=== PATIENT | female | born 1945 | race Caucasian/White ===

== ENCOUNTER 2020-05-24 12:40 | Inpatient (IN) | payer MEDICARE ==
[~2020-05-24] VITALS: Ht 157.5 cm; Wt 59.1 kg
[2020-05-24] MEDS ORDERED: morphine 4 MG/ML inj SYRINge IV ONE (13:35)
[2020-05-24] MEDS ORDERED: normal saline 1000ml 1,000 ML IV ONE (13:35)
[2020-05-24 13:54] LABS: BASOPHILS # (AUTO) 0.1 X10'3 (0-0.2); BASOPHILS % (AUTO) 0.4 % (0-1); EOSINOPHILS # (AUTO) 0.1 X10'3 (0-0.9); EOSINOPHILS % (AUTO) 0.5 % (0-6); HEMOGLOBIN 14.1 g/dl (12.0-16.0); LYMPHOCYTES # (AUTO) 1.7 X10'3 (1.1-4.8); LYMPHOCYTES % (AUTO) 12.9 % (21-51); MEAN CORPUSCULAR HEMOGLOBIN 32.5 PG (27.0-31.0); MEAN CORPUSCULAR HGB CONC 33.5 g/dL (33.0-36.5); MEAN CORPUSCULAR VOLUME 97.1 FL (78-98); MEAN PLATELET VOLUME 7.3 FL (7.4-10.4); MONOCYTES # (AUTO) 0.8 X10'3 (0-0.9); MONOCYTES % (AUTO) 6.2 % (2-12); NEUTROPHILS # (AUTO) 10.4 X10'3 (1.8-7.7); PLATELET COUNT 352 X10'3 (140-440); RED BLOOD COUNT 4.33 X10'6 (4.20-5.60); RED CELL DISTRIBUTION WIDTH 12.8 % (11.5-14.5)
[2020-05-24 14:06] LABS: PARTIAL THROMBOPLASTIN TIME 25 SECONDS (22-32)
[2020-05-24 14:08] LABS: ALANINE AMINOTRANSFERASE 34 U/L (12-78); ALBUMIN 3.7 G/DL (3.4-5.0); ALKALINE PHOSPHATASE 83 IU/L (46-116); ANION GAP 5 (8-16); ASPARTATE AMINO TRANSFERASE 16 U/L (10-37); BILIRUBIN,TOTAL 0.2 MG/DL (0.1-1.0); BLOOD UREA NITROGEN 14 MG/DL (7-18); BUN/CREATININE RATIO 17.7 (6.6-38.0); CALCIUM 9.3 MG/DL (8.5-10.1); CHLORIDE 102 MMOL/L (99-107); CREATININE 0.79 MG/DL (0.40-0.90); GLUCOSE 173 MG/DL (70-104); POTASSIUM 3.8 MMOL/L (3.5-5.1); SODIUM 138 MMOL/L (135-145); TOTAL PROTEIN 7.5 G/DL (6.4-8.2); eGFR 71 ML/MIN
[2020-05-24 14:15] LABS: MAGNESIUM 2.3 MG/DL (1.5-2.4)
[2020-05-24] MEDS ORDERED: ringers solution, lacted 1,000 ML IV ONE (14:20)
[2020-05-24] MEDS ORDERED: ondansetron/PF 4mg/2ml inj IV PRN (14:35)
[2020-05-24] MEDS ORDERED: mag hydrox/Alum hydrox/simeth 30ml oral suspension PO PRN (14:35)
[2020-05-24] MEDS ORDERED: acetaminophen 325mg tablet PO PRN ×2 (14:35)
[2020-05-24] MEDS ORDERED: PRAV40TA3 PO (14:50)
[2020-05-24] MEDS ORDERED: ESTR1TAB19 PO (14:50)
[2020-05-24] MEDS ORDERED: AMLO5TAB PO (14:50)
[2020-05-24] MEDS ORDERED: FLUT16SP20 BOTHNARES (14:50)
[2020-05-24] MEDS ORDERED: LOSA50TA64 PO (14:50)
--- NOTE | 2020-05-24 16:00 | NUR ---
I have received report from Dionisio PIERSON in ED and had the opportunity to ask questions and assume patient care.
[2020-05-24 16:10] VITALS: BP 158/74
--- NOTE | 2020-05-24 16:10 | NUR ---
Patient transferred to room 4023A in stable condition.
[2020-05-24] MEDS: traMADol 50MG tablet PO PRN (16:31)
[2020-05-24 18:00] VITALS: BP 151/73
--- NOTE | 2020-05-24 18:00 | NUR ---
Problems reprioritized. Patient report given, questions answered & plan of care reviewed with Michelle PIERSON.
--- NOTE | 2020-05-24 18:18 | NUR ---
Patient in room ORTHO 4023. I have received report from Madelaine PIERSON and had the opportunity to ask questions and assume patient care.
--- NOTE | 2020-05-24 21:46 | NUR ---
PAGER ID: [phone] MESSAGE: Michelle stanley [phone]. Marta Henry in 4023A is wanting her BP meds. Her med rec was never done on day shift. I just went and completed it. She takes amlodipine 5mg daily. She has not got any of her regular meds since being here. BP 162/83
[2020-05-24 22:00] VITALS: BP 154/89
[2020-05-24] MEDS: amLODIPine 5mg tablet PO SCH (22:01)
[2020-05-25] VITALS (19 sets, daily range): BP systolic 120–154; BP diastolic 57–98
[2020-05-25] MEDS: morphine 2 MG/ML inj. syringe IV PRN (02:53)
[2020-05-25] MEDS ORDERED: famotidine/PF 10 mg/ml inj IV ONE (06:00)
[2020-05-25 06:09] LABS: BASOPHILS % (AUTO) 0.2 % (0-1); EOSINOPHILS % (AUTO) 0.3 % (0-6); HEMOGLOBIN 13.2 g/dl (12.0-16.0); LYMPHOCYTES # (AUTO) 2.5 X10'3 (1.1-4.8); LYMPHOCYTES % (AUTO) 20.2 % (21-51); MEAN CORPUSCULAR HEMOGLOBIN 32.8 PG (27.0-31.0); MEAN CORPUSCULAR HGB CONC 33.9 g/dL (33.0-36.5); MEAN CORPUSCULAR VOLUME 96.9 FL (78-98); MEAN PLATELET VOLUME 7.4 FL (7.4-10.4); MONOCYTES # (AUTO) 1.1 X10'3 (0-0.9); MONOCYTES % (AUTO) 8.6 % (2-12); NEUTROPHILS # (AUTO) 8.7 X10'3 (1.8-7.7); NEUTROPHILS % (AUTO) 70.7 % (42-75); PLATELET COUNT 346 X10'3 (140-440); RED BLOOD COUNT 4.02 X10'6 (4.20-5.60); RED CELL DISTRIBUTION WIDTH 12.9 % (11.5-14.5); WHITE BLOOD COUNT 12.4 X10'3 (4.5-11.0)
[2020-05-25 06:19] LABS: ALBUMIN 3.3 G/DL (3.4-5.0); ANION GAP 7 (8-16); BLOOD UREA NITROGEN 9 MG/DL (7-18); BUN/CREATININE RATIO 13.6 (6.6-38.0); CALCIUM 8.4 MG/DL (8.5-10.1); CHLORIDE 105 MMOL/L (99-107); CREATININE 0.66 MG/DL (0.40-0.90); GLUCOSE 112 MG/DL (70-104); POTASSIUM 3.7 MMOL/L (3.5-5.1); SODIUM 139 MMOL/L (135-145); TOTAL CARBON DIOXIDE 27.1 MMOL/L (24-32); eGFR 87 ML/MIN
--- NOTE | 2020-05-25 06:38 | NUR ---
Problems reprioritized. Patient report given, questions answered & plan of care reviewed with La Nena PIERSON.
[2020-05-25] MEDS: amLODIPine 5mg tablet PO SCH (07:12)
[2020-05-25] MEDS ORDERED: morphine 4 MG/ML inj SYRINge IV PRN (08:50)
[2020-05-25] MEDS ORDERED: labetalol 20mg/4ml (5mg/ml) syringe IV PRN (08:50)
[2020-05-25] MEDS ORDERED: ondansetron/PF 4mg/2ml inj IV PRN (08:50)
[2020-05-25] MEDS ORDERED: morphine 2 MG/ML inj. syringe IV PRN (08:50)
[2020-05-25] MEDS ORDERED: hydrALAZINE 20mg/ml inj. IV PRN (08:50)
[2020-05-25] MEDS ORDERED: ringers solution, lacted 1,000 ML IV SCH (08:50)
[2020-05-25] MEDS ORDERED: fentaNYL/PF 50MCG/1 ML 2ML syringe IV PRN ×2 (08:50)
[2020-05-25] MEDS ORDERED: sevoflurane 250ml liquid IH ONE (10:21)
[2020-05-25] MEDS ORDERED: fentaNYL/PF 50MCG/1 ML 2ML syringe ONE (10:22)
[2020-05-25] MEDS ORDERED: MIDAZolam 5mg/5ml vial ONE (10:22)
[2020-05-25] MEDS ORDERED: ROPIVAcaine 0.5% (5mg/ml) 30ml vial ONE ×2 (10:22)
[2020-05-25] MEDS ORDERED: dexamethasone sod phosphate 4mg/ml inj. ONE (10:23)
[2020-05-25] MEDS ORDERED: ondansetron/PF 4mg/2ml inj ONE (10:23)
[2020-05-25] MEDS ORDERED: ceFAZolin 1000mg inj ONE ×3 (10:31→10:47)
[2020-05-25] MEDS ORDERED: LIDOcaine 2% (20mg/ml) 5ml vial ONE (10:50)
[2020-05-25] MEDS ORDERED: propofol inj 20 ML IV ONE (10:50)
--- NOTE | 2020-05-25 12:45 | NUR ---
Received from OR via BED , accompanied by Anesthesiologist DR LEMA and report given by Anesthesiolgist. PATIENT WAKING UP, NO S/S OF PAIN, V/S WNL, NEUROVASCULAR CHECKS INTACT, 20G PIV RUE , LEFT FOOT/ANKLE SPLINT CAST DRESSING CDI.
--- NOTE | 2020-05-25 13:35 | NUR ---
PATIENT SLEEPY BUT ORIENTED X4, DENIES PAIN, V/S WNL, NEUROVASCULAR CHECKS INTACT, 20G PIV RUE , LEFT FOOT/ANKLE SPLINT CAST DRESSING CDI. PATIENT TAKEN TO 4023A WITH ALL BELONGINGS AND HOOKED UP TO MONITORS IN ROOM AND REPORT GIVEN TO ORDAINED MINISTER WHO HAS TAKEN OVER PATIENT CARE.
--- NOTE | 2020-05-25 18:25 | NUR ---
Problems reprioritized. Patient report given, questions answered & plan of care reviewed with Shannon PIERSON.
--- NOTE | 2020-05-25 18:25 | NUR ---
Patient in room ORTHO 4023. I have received report from La Nena PIERSON and had the opportunity to ask questions and assume patient care.
[2020-05-26 02:00] VITALS: BP 125/66
[2020-05-26] MEDS: traMADol 50MG tablet PO PRN ×2 (02:11→19:01)
[2020-05-26] MEDS: morphine 2 MG/ML inj. syringe IV PRN ×3 (05:23→14:58)
--- NOTE | 2020-05-26 06:25 | NUR ---
Patient in room ORTHO 4023. I have received report from DANGELO Ortega and had the opportunity to ask questions and assume patient care.
[2020-05-26 06:33] LABS: BASOPHILS % (AUTO) 0.1 % (0-1); EOSINOPHILS % (AUTO) 0 % (0-6); HEMATOCRIT 35.7 % (35.0-45.0); HEMOGLOBIN 12.2 g/dl (12.0-16.0); LYMPHOCYTES # (AUTO) 2.6 X10'3 (1.1-4.8); LYMPHOCYTES % (AUTO) 16.3 % (21-51); MEAN CORPUSCULAR HEMOGLOBIN 33.5 PG (27.0-31.0); MEAN CORPUSCULAR HGB CONC 34.3 g/dL (33.0-36.5); MEAN CORPUSCULAR VOLUME 97.8 FL (78-98); MEAN PLATELET VOLUME 7.6 FL (7.4-10.4); MONOCYTES # (AUTO) 1.9 X10'3 (0-0.9); MONOCYTES % (AUTO) 11.6 % (2-12); NEUTROPHILS # (AUTO) 11.5 X10'3 (1.8-7.7); PLATELET COUNT 338 X10'3 (140-440); RED BLOOD COUNT 3.65 X10'6 (4.20-5.60); RED CELL DISTRIBUTION WIDTH 12.7 % (11.5-14.5)
[2020-05-26 06:44] LABS: ALBUMIN 3.1 G/DL (3.4-5.0); ANION GAP 10 (8-16); BLOOD UREA NITROGEN 11 MG/DL (7-18); BUN/CREATININE RATIO 15.1 (6.6-38.0); CALCIUM 8.3 MG/DL (8.5-10.1); CHLORIDE 106 MMOL/L (99-107); CREATININE 0.73 MG/DL (0.40-0.90); GLUCOSE 102 MG/DL (70-104); POTASSIUM 3.4 MMOL/L (3.5-5.1); SODIUM 141 MMOL/L (135-145); TOTAL CARBON DIOXIDE 25.4 MMOL/L (24-32); eGFR 77 ML/MIN
--- NOTE | 2020-05-26 06:46 | NUR ---
Problems reprioritized. Patient report given, questions answered & plan of care reviewed with Ernestina Rn.
[2020-05-26] MEDS ORDERED: non-formulary drug (Amlodipine Besylate 1 TABLET) PO SCH (08:00)
[2020-05-26] MEDS ORDERED: potassium CL 10mEq/100ml bag 100 ML IV PRN (09:30)
[2020-05-26] MEDS ORDERED: magnesium 4gm in 100ml NS 100 ML IV PRN (09:30)
[2020-05-26] MEDS ORDERED: magnesium Cl slow-release 64mg tablet PO PRN (09:30)
[2020-05-26] MEDS ORDERED: magnesium 2GM in 50ml NS 50 ML IV PRN (09:30)
[2020-05-26] MEDS ORDERED: potassium Cl 20 mEq SR tablet PO PRN (09:30)
[2020-05-26 09:42] LABS: MAGNESIUM 2.1 MG/DL (1.5-2.4)
[2020-05-26] MEDS: losartan 50mg tablet PO SCH (10:35)
[2020-05-26] MEDS: pravastatin 40mg tablet PO SCH (10:35)
[2020-05-26] MEDS: fluticasone nasal spray 16GM bottle NS SCH (10:35)
[2020-05-26] MEDS: estradiol 1mg tablet PO SCH (10:35)
[2020-05-26] MEDS: amLODIPine 5mg tablet PO SCH (10:36)
[2020-05-26] MEDS: potassium Cl 20 mEq SR tablet PO PRN ×3 (10:43→18:11)
[2020-05-26] MEDS: magnesium hydroxide 30ml (MOM) UD suspension PO PRN (10:44)
[2020-05-26 11:00] VITALS: BP 124/59
[2020-05-26 18:00] VITALS: BP 125/59
--- NOTE | 2020-05-26 18:00 | NUR ---
Patient in room ORTHO 4023. I have received report from Ernestina PIERSON and had the opportunity to ask questions and assume patient care.
--- NOTE | 2020-05-26 18:40 | NUR ---
Problems reprioritized. Patient report given, questions answered & plan of care reviewed with DANGELO Bateman.
[2020-05-26] MEDS: K and/or MAG REPLACEMENT MC SCH (20:00)
[2020-05-26] MEDS: docusate sod 100mg capsule PO SCH (21:01)
[2020-05-26 22:00] VITALS: BP 136/73
[2020-05-27] MEDS: traMADol 50MG tablet PO PRN ×2 (00:58→05:44)
[2020-05-27 05:12] LABS: CLARITY,URINE CLEAR (Clear); COLOR,URINE YELLOW (Yellow); GLUCOSE, URINE NEGATIVE (Neg); KETONES,URINE NEGATIVE (Neg); LEUKOCYTE ESTERASE ,URINE NEGATIVE (Neg); NITRITES, URINE NEGATIVE (Neg); OCCULT BLOOD,URINE NEGATIVE (Neg); PROTEIN,URINE NEGATIVE (Neg); UROBILINOGEN,URINE 0.2 E.U/dL (0.2-1.0)
[2020-05-27 05:19] LABS: UA COLLECTION TYPE VOIDED
[2020-05-27 05:24] LABS: BASOPHILS # (AUTO) 0.1 X10'3 (0-0.2); BASOPHILS % (AUTO) 0.5 % (0-1); EOSINOPHILS # (AUTO) 0.1 X10'3 (0-0.9); EOSINOPHILS % (AUTO) 0.7 % (0-6); HEMATOCRIT 36.5 % (35.0-45.0); HEMOGLOBIN 12.4 g/dl (12.0-16.0); LYMPHOCYTES # (AUTO) 2.9 X10'3 (1.1-4.8); LYMPHOCYTES % (AUTO) 22.9 % (21-51); MEAN CORPUSCULAR HEMOGLOBIN 33.1 PG (27.0-31.0); MEAN CORPUSCULAR HGB CONC 33.9 g/dL (33.0-36.5); MEAN CORPUSCULAR VOLUME 97.7 FL (78-98); MEAN PLATELET VOLUME 7.2 FL (7.4-10.4); MONOCYTES # (AUTO) 1.5 X10'3 (0-0.9); MONOCYTES % (AUTO) 12.2 % (2-12); NEUTROPHILS % (AUTO) 63.7 % (42-75); PLATELET COUNT 322 X10'3 (140-440); RED BLOOD COUNT 3.73 X10'6 (4.20-5.60); RED CELL DISTRIBUTION WIDTH 12.7 % (11.5-14.5); WHITE BLOOD COUNT 12.7 X10'3 (4.5-11.0)
[2020-05-27 05:36] LABS: ANION GAP 5 (8-16); BLOOD UREA NITROGEN 12 MG/DL (7-18); BUN/CREATININE RATIO 18.2 (6.6-38.0); CALCIUM 8.6 MG/DL (8.5-10.1); CHLORIDE 103 MMOL/L (99-107); CREATININE 0.66 MG/DL (0.40-0.90); GLUCOSE 112 MG/DL (70-104); MAGNESIUM 2.4 MG/DL (1.5-2.4); POTASSIUM 4.1 MMOL/L (3.5-5.1); SODIUM 138 MMOL/L (135-145); TOTAL CARBON DIOXIDE 29.8 MMOL/L (24-32); eGFR 87 ML/MIN
--- NOTE | 2020-05-27 06:19 | NUR ---
Patient in room ORTHO 4023. I have received report from Bhavana PIERSON and had the opportunity to ask questions and assume patient care.
--- NOTE | 2020-05-27 06:36 | NUR ---
Problems reprioritized. Patient report given, questions answered & plan of care reviewed with Claudia PEIRSON.
[2020-05-27 07:01] VITALS: BP 121/64
[2020-05-27] MEDS: fluticasone nasal spray 16GM bottle NS SCH (07:07)
[2020-05-27] MEDS: losartan 50mg tablet PO SCH (07:08)
[2020-05-27] MEDS: estradiol 1mg tablet PO SCH (07:08)
[2020-05-27] MEDS: docusate sod 100mg capsule PO SCH (07:08)
[2020-05-27 07:09] VITALS: BP_SYST 121
[2020-05-27] MEDS: amLODIPine 5mg tablet PO SCH (07:09)
[2020-05-27] MEDS: morphine 2 MG/ML inj. syringe IV PRN (07:18)
[2020-05-27] MEDS: K and/or MAG REPLACEMENT MC SCH (08:00)
--- NOTE | 2020-05-27 08:25 | NUR ---
No labs ordered today
[2020-05-27] MEDS ORDERED: oxyCODONE/APAP 5-325mg tablet PO PRN (08:55)
--- NOTE | 2020-05-27 09:02 | NUR ---
Dr Davenport called and he is ok with patient to be discharged home with a wheelchair and home PT
--- NOTE | 2020-05-27 09:05 | NUR ---
Paged Case management to advise patient will need home PT and WC for discharge. Addendum: 05/27/20 at 0907 by Claudia Beltre RN Per Terese with case management they ordered WC this am.
[2020-05-27] MEDS ORDERED: DOCU100C40 PO (09:13)
[2020-05-27] MEDS ORDERED: PER5325T PO (09:13)
[2020-05-27] MEDS: pravastatin 40mg tablet PO SCH (09:26)
[2020-05-27] MEDS: magnesium hydroxide 30ml (MOM) UD suspension PO PRN (09:27)
--- NOTE | 2020-05-27 12:03 | NUR ---
Student documentation:I have reviewed and agree with all interventions, assessments performed and documented by Gregory Byrne.
--- NOTE | 2020-05-27 14:22 | NUR ---
Patients discharge instructions reviewed with patient and patient verbalized understanding. Patient IV Dc'd for discharge cannula intact. Patients has a wheelchair delivered. Patient also had a walker from home that was sent home with her. Patient was assisted with getting dressed. Patient has home health with physical therapy ordered and they will contact her tomorrow 05/28. Patient states she has all her belongings. Patients grandson is here for transportation. Patient was taken to vehicle in her wheelchair and assisted into vehicle.
== END 2020-05-27 14:30 | disposition home health service (06) | DRG 494 ==
LOC: ER 12:41 → ED HOLD 14:33 → ORTHO 4S 16:05
PROVIDERS: ADMIT Internal Medicine; ATTEND Internal Medicine
PROC: 0SSGXZZ Reposition Left Ankle Joint, External Approach (ICD-10-PCS; 2020-05-24)
PROC: 0QSK04Z Reposition Left Fibula with Internal Fixation Device, Open Approach (ICD-10-PCS; 2020-05-25)
PROC: 3E0T3BZ Introduction of Anesthetic Agent into Peripheral Nerves and Plexi, Percutaneous Approach (ICD-10-PCS; 2020-05-25)
PROC: 0QSH04Z Reposition Left Tibia with Internal Fixation Device, Open Approach (ICD-10-PCS; principal; 2020-05-25 10:21)
DX: S82.842A Displaced bimalleolar fracture of left lower leg, initial encounter for closed fracture (principal); E78.00 Pure hypercholesterolemia, unspecified; E78.5 Hyperlipidemia, unspecified; W01.0XXA Fall on same level from slipping, tripping and stumbling without subsequent striking against object, initial encounter; I10 Essential (primary) hypertension; Z79.899 Other long term (current) drug therapy; Z90.710 Acquired absence of both cervix and uterus; Y93.89 Activity, other specified; Y92.098 Other place in other non-institutional residence as the place of occurrence of the external cause; Y99.8 Other external cause status
CPT/HCPCS: 27810; 36415; 71045; 73610; 80048; 80053; 81003; 82948; 83735; 83880; 85025; 85610; 85730; 86885; 86900; 86901; 87081; 93005; 96374; 97110; 97116; 97162; 97530; 97542; 99285; G0378; J0690; J1100; J2001; J2250; J2270; J2405; J2704; J2795; J3010; J3490; J7030; J7120